=== PATIENT | male | born 1980 | race Caucasian/White ===

== ENCOUNTER 2022-04-29 07:20 | Outpatient (CLI) | payer OTHER, SELFPAY ==
[2022-04-29 08:12] LABS: Hematocrit 43.9 % (37.0-53.0); Hemoglobin* 15.5 gm/dL (13.5-17.5); Mean Corpuscular HGB Conc 35 gm/dL (32-36); Mean Corpuscular Hemoglobin 32 pg (26-34); Mean Corpuscular Volume 91 fL (80-100); Platelet Count* 217 K/uL (140-440); Red Blood Count 4.85 m/uL (4.30-5.90); White Blood Count* 5.36 K/uL (4.50-11.00)
[2022-04-29 08:14] LABS: Slide Review Reflex No
[2022-04-29 13:38] LABS: Albumin* 4.6 g/dL (3.3-5.0)
[2022-04-29 13:39] LABS: Chloride* 102 mmol/L (96-114); Potassium* 4.5 mmol/L (3.6-5.1); Sodium* 138 mmol/L (135-149)
[2022-04-29 13:41] LABS: Bilirubin Direct* 0.3 mg/dL (0.0-0.5); Bilirubin Total* 0.9 mg/dL (0.1-1.5); Carbon Dioxide* 28 mmol/L (20-32); Cholesterol* 227 mg/dL (90-199); Creatinine* 1.1 mg/dL (0.5-1.5); Estimated Glomerular Filt Rate 85 ml/min; Total Protein* 7.3 g/dL (6.0-8.3)
[2022-04-29 13:42] LABS: Alanine Aminotransferase* 37 U/L (4-50); Alkaline Phosphatase* 62 U/L (40-150); Aspartate Amino Transferase* 37 U/L (12-35); Blood Urea Nitrogen* 19 mg/dL (5-24); Calcium* 9.7 mg/dL (8.4-10.6); Glucose* 109 mg/dL (60-115); HDL Cholesterol* 55 mg/dL (>=40); LDL Cholesterol Calculated 144 mg/dL (<100); Triglycerides* 139 mg/dL (40-149)
== END 2022-04-29 07:21 | disposition home or self-care (01) ==
PROVIDERS: PCP Family Medicine; Visit Provider Family Medicine
DX: E78.5 Hyperlipidemia, unspecified (principal); Z13.9 Encounter for screening, unspecified
CPT/HCPCS: 80053; 80061; 80076; 85027

== ENCOUNTER 2022-09-17 14:04 | Outpatient (CLI) | payer OTHER, SELFPAY ==
[2022-09-17 12:24] LABS: Chloride* 103 mmol/L (96-114)
[2022-09-17 12:25] LABS: Albumin* 4.6 g/dL (3.3-5.0)
[2022-09-17 12:26] LABS: Potassium* 4.8 mmol/L (3.6-5.1); Sodium* 140 mmol/L (135-149)
[2022-09-17 12:28] LABS: Alkaline Phosphatase* 49 U/L (40-150); Aspartate Amino Transferase* 38 U/L (12-35); Bilirubin Total* 0.7 mg/dL (0.1-1.5); Blood Urea Nitrogen* 18 mg/dL (5-24); Carbon Dioxide* 30 mmol/L (20-32); Cholesterol* 187 mg/dL (90-199); Creatinine* 1.1 mg/dL (0.5-1.5); Estimated Glomerular Filt Rate 85 ml/min; Total Protein* 6.9 g/dL (6.0-8.3)
[2022-09-17 12:29] LABS: Alanine Aminotransferase* 50 U/L (4-50); Calcium* 9.5 mg/dL (8.4-10.6); Glucose* 98 mg/dL (60-115); HDL Cholesterol* 53 mg/dL (>=40); LDL Cholesterol Calculated 108 mg/dL (<100); Triglycerides* 128 mg/dL (40-149)
== END 2022-09-17 14:05 | disposition home or self-care (01) ==
PROVIDERS: PCP Family Medicine; Visit Provider Family Medicine
DX: E78.5 Hyperlipidemia, unspecified (principal); I10 Essential (primary) hypertension
CPT/HCPCS: 80053; 80061

== ENCOUNTER 2023-06-21 07:27 | Outpatient (CLI) | payer OTHER, SELFPAY | END 2023-06-21 07:28 | disposition home or self-care (01) | LOC: NFLDREF 06-23 10:04 | PROVIDERS: PCP Family Medicine; Referring Provider Family Medicine; Visit Provider Family Medicine | DX: Z00.00 Encounter for general adult medical examination without abnormal findings (principal); E78.5 Hyperlipidemia, unspecified; I10 Essential (primary) hypertension | CPT/HCPCS: 80053; 80061 ==

== ENCOUNTER 2024-07-09 07:27 | Outpatient (CLI) | payer OTHER, SELFPAY | END 2024-07-09 07:28 | disposition home or self-care (01) | LOC: NFLDREF 07-10 20:44 | PROVIDERS: PCP Family Medicine; Referring Provider Family Medicine; Visit Provider Family Medicine | DX: Z13.1 Encounter for screening for diabetes mellitus (principal); Z13.6 Encounter for screening for cardiovascular disorders | CPT/HCPCS: 80053; 80061 ==

== ENCOUNTER 2024-08-06 09:17 | Outpatient (CLI) | payer OTHER, SELFPAY ==
--- NOTE | 2024-08-06 10:59 | W.ANESCHARGE ---
Anesthesia Charges Start Date/Time Anesthesia Start Date: 08/06/24 Anesthesia Start Time: 10:22 Stop Date/Time Anesthesia Stop Date: 08/06/24 Anesthesia Stop Time: 10:57
--- NOTE | 2024-08-06 11:42 | W.ANESCHARGE ---
Anesthesia Charges Start Date/Time Anesthesia Start Date: 08/06/24 Anesthesia Start Time: 10:22 Stop Date/Time Anesthesia Stop Date: 08/06/24 Anesthesia Stop Time: 10:57
== END 2024-08-06 09:18 | disposition home or self-care (01) ==
LOC: OP CLINIC 09:17
PROVIDERS: PCP Family Medicine; Visit Provider Surgery
DX: Z12.11 Encounter for screening for malignant neoplasm of colon (principal); D12.3 Benign neoplasm of transverse colon; D12.8 Benign neoplasm of rectum
CPT/HCPCS: 00811; 45385; 88305; J2704

== ENCOUNTER 2024-12-17 12:10 | Day surgery (SDC) | payer OTHER, SELFPAY ==
[2024-12-17] VITALS (13 sets, daily range): BP systolic 123–149; BP diastolic 89–110; PULSE 78–111; RESP 13–20; TEMP 37.1; O2SAT 84–99; BMI 25.9
[2024-12-17] MEDS: BUPIVACAINE 0.5% 30 ML INJECTION (12:00)
[2024-12-17] MEDS: LIDOCAINE 1% MDV INJECTION (12:00)
[2024-12-17] MEDS: ETHYL CHLORIDE 1 APPLICATION 1 APPLIC TOPICAL (12:00)
--- NOTE | 2024-12-17 13:29 | SUR.PREOP ---
Patient passed out and was unresponsive for 3-5 seconds during hand block injection in SDS room 8. Pt's BP decreased to 90/50. Pt was transferred to bed and after BP recheck went up to 122/88.
[2024-12-17] MEDS: LIDOCAINE 1% MDV 20 ML INJECTION (13:35)
--- NOTE | 2024-12-17 13:54 | P.ORPRC_ITS ---
Procedure Note Date of procedure: 12/17/24 Procedure: PREOPERATIVE DIAGNOSIS: 1. Right long finger radial sided DIP joint mucous cyst/benign cyst POSTOPERATIVE DIAGNOSIS: 1. Right long finger radial sided DIP joint mucous cyst/benign cyst PROCEDURE: 1. Right long finger radial sided DIP joint mucous cyst/benign cyst open excision SURGEON: Phillip Colon MD. GYROSCOPIC INSTRUMENT MECHANIC: JOSI Blackwell - Of note, an election assistant was critical for this case to aid in patient positioning, tissue retraction, limb manipulation/positioning, and closure. ANESTHESIA: Local anesthetic (50:50 mixture of 1% lidocaine plain and 0.5% marcaine plain) IMPLANTS: None TOURNIQUET: Digital tourni-cot times 15 minutes COMPLICATIONS: None evident SPECIMENS: The excised cyst was sent for permanent pathology. INDICATIONS: The patient is a pleasant 44-year-old male who has experienced right long finger radial sided DIP joint cyst development/formation over course of number of months. He has continued to grow. It is now catching on things and causing pain when he pinches it. Nonoperative management has been tried but unsuccessful. Given the failure of nonoperative management, and how this affects daily life, surgery was recommended. DESCRIPTION OF PROCEDURE: Following a thorough discussion of risks, benefits, and alternatives consent was obtained and the operative extremity was marked. The patient was brought to the operating room and placed supine on the operating table. No antibiotics were administered as this was planned to be a local case only. Proper time-out was performed identifying proper patient, site, and procedure. The operative extremity was prepped and draped in the appropriate sterile fashion using ChloraPrep. The limb was exsanguinated and the tourniquet inflated. An 'v' incision was made on the dorsal aspect of the middle phalanx centered over the D IP joint. The base of the V was on the cyst side radially. Sharp incision through the skin, and blunt dissection through subcutaneous tissue allowed us to protect crossing neurologic structures. We also were able to protect the extensor tendon throughout the case. The flap was mobilized along the base on the radial side. The cyst was encountered from the deep side. This was punctured and a thick, clear, gelatinous fluid was expressed consistent with a ganglion cyst/mucous cyst. The cyst was then sharply excised from the dermis on the deep side as well as from the radial side of the D IP joint. The stalk did go to the D IP joint. We also were able to rongeur the radial side of the bones informing the DIP joint to try to minimize any recurrence. There is no significant osteophytosis. The extensor tendon was protected throughout the case. At this stage, the tourniquet was deflated and hemostasis achieved. Closure was performed with 4-O nylon and skin glue. Soft dressings were applied, and the patient was awoken/transferred to the recovery room in stable condition. PLAN: 1. Encourage elevation of the operative extremity. 2. Range of motion of the operative extremity/digits as tolerated. 3. Ibuprofen, acetaminophen and/or oxycodone as needed for pain. 4. Follow up with PA visit in 12-16 days for wound check and suture removal.
[2024-12-17] MEDS: NEOMYCIN/BACITRACIN/POLYMYXIN B 1 APPLIC TOPICAL (13:57)
== END 2024-12-17 14:34 | disposition home or self-care (01) ==
LOC: OR 12:10
PROVIDERS: PCP Family Medicine; Visit Provider Orthopaedic Surgery Sports Medicine
PROC: (CPT 26160; principal; 2024-12-17 14:00)
DX: M67.441 Ganglion, right hand (principal)
CPT/HCPCS: 26160; J2003; J0665

== ENCOUNTER 2025-06-19 07:19 | Outpatient (CLI) | payer OTHER, SELFPAY | END 2025-06-19 07:20 | disposition home or self-care (01) | LOC: NFLDREF 06-24 18:09 | PROVIDERS: PCP Family Medicine; Referring Provider Family Medicine; Visit Provider Family Medicine | DX: E78.5 Hyperlipidemia, unspecified (principal); I10 Essential (primary) hypertension; Z13.1 Encounter for screening for diabetes mellitus | CPT/HCPCS: 80053; 80061 ==